=== PATIENT | female | born 1950 | race African-American/Black ===

== ENCOUNTER 2024-04-21 01:34 | Inpatient (IN) | payer MEDICARE ==
[2024-04-21 02:15] VITALS: BMI 31.8
[2024-04-21] MEDS ORDERED: Acetaminophen 650 MG Suppository PR PRN (02:22)
[2024-04-21] MEDS ORDERED: Glucagon 1 MG/ML KIT IM PRN (03:39)
[2024-04-21] MEDS ORDERED: Dextrose 50% Abboject 50 ML SYRINGE SLOW IVP PRN (03:39)
[2024-04-21] MEDS: Ipratropium/Albuterol 3 ML NEB NEB SCH (03:39)
[2024-04-21] MEDS ORDERED: Dextrose 5% in Water 1,000 ML IV PRN (03:39)
[2024-04-21] MEDS: Morphine 2 MG/ML VIAL SLOW IVP SCH (03:42)
[2024-04-21] MEDS: Furosemide 40 MG (4 mL) VIAL SLOW IVP SCH (05:42)
[2024-04-21 07:20] LABS: Anion Gap 14 mmol/L (10-20); BUN (Urea Nitrogen) 16 mg/dL (9.8-20.1); Calc. Creatinine Clearance 63 mL/min (70-130); Calcium 8.3 mg/dL (7.8-10.44); Carbon Dioxide 25 mmol/L (23-31); Chloride 105 mmol/L (98-107); Estimated GFR 62; Glucose 151 mg/dL (83-110); Potassium 3.9 mmol/L (3.5-5.1); Sodium 140 mmol/L (136-145)
[2024-04-21 07:38] LABS: #Basophils 0.03 10x3/uL (0.0-0.2); %Basophils 0.8 % (0.0-1.0); %Eosinophils 3.6 % (0.0-10.0); %Lymphocytes 14.1 % (21.0-51.0); %Monocytes 16.9 % (0.0-10.0); %Neutrophils 64.1 % (42.0-75.0); Hematocrit 33.8 % (36.0-47.0); Hemoglobin 10.6 g/dL (12.0-16.0); Mean Corpuscular HGB CONC 31.4 g/dL (32.0-36.0); Mean Corpuscular Hemoglobin 28.1 pg (27.0-31.0); Mean Corpuscular Volume 89.7 fL (78.0-98.0); Mean Platelet Volume 10.7 fL (7.4-10.4); Platelet Count 244 10x3/uL (130-400); RBC Distribution Width 14.9 % (11.5-14.5); Red Blood Cell (RBC) Count 3.77 mill/uL (4.20-5.40)
[2024-04-21] MEDS: Lisinopril 20 MG TAB PO SCH (08:23)
[2024-04-21] MEDS: Enoxaparin 40 MG (0.4 mL) SYRINGE SC SCH (08:23)
[2024-04-21] MEDS: Atorvastatin Calcium 20 MG TAB PO SCH (08:23)
[2024-04-21] MEDS: Gabapentin 300 MG CAP PO SCH (08:23)
[2024-04-21] MEDS: Carvedilol 25 MG TAB PO SCH (08:23)
[2024-04-21] MEDS: metFORMIN 500 MG TAB PO SCH (08:23)
[2024-04-21 08:37] LABS: ALT (SGPT) 6 U/L (8-55); AST (SGOT) 12 U/L (5-34); Albumin 2.9 g/dL (3.4-4.8); Alkaline Phosphatase 56 U/L (40-110); Bilirubin, Direct 0.2 mg/dL (0.1-0.3); Bilirubin, Total 0.5 mg/dL (0.2-1.2); Protein, Total 6.4 g/dL (5.8-8.1)
[2024-04-21] MEDS: Morphine 2 MG/ML VIAL SLOW IVP PRN (10:11)
[2024-04-21 12:10] LABS: Pleural Fluid, Protein 4.5 g/dL
[2024-04-21] MEDS: traMADol HCl 50 MG TAB PO PRN (12:12)
[2024-04-21 12:25] LABS: Fluid, pH - Pleural Fld Greater than 7.500 (7.60 - 7.66)
[2024-04-21 12:58] LABS: RBC Count-Automated (BF) 7245 /cu.mm; WBC/Nucleated-Auto (BF) 317 /cu.mm
[2024-04-21 13:40] LABS: Body Fluid Source Thoracentesis Fluid; Clarity Hazy (Clear); Tube # EDTA
[2024-04-21 13:41] LABS: BF Color Pink
[2024-04-21 13:46] LABS: BF Segmented Neutrophils 28 %; Cell Count Non Hematic 36 %; Eosinophils 1 %; Lymphocytes 35 %
[2024-04-21 20:34] LABS: Bacteria/HPF 1+ HPF (None Seen); Bilirubin Negative (Negative); Blood, Urine Negative (Negative); Clarity Clear (Clear); Glucose, Urine (Dipstick) >=1000 mg/dL (Negative); Ketone, Urine Negative (Negative); Leukocyte Negative Leu/uL (Negative); Nitrite Negative (Negative); Protein, Urine (Dipstick) Negative (Neg-Trace); RBC/HPF 0-3 HPF (0-3); Specific Gravity, Urine 1.005 (1.002-1.036); Squamous Epithelial 0-3 HPF (0-3); Urobilinogen Normal mg/dL (Less than 2); WBC/HPF 0-3 HPF (0-3)
[2024-04-21] MEDS: Insulin Glargine 30 UNITS/0.3 ML VIAL SC SCH (20:37)
[2024-04-21] MEDS: QUEtiapine 25 MG TAB PO SCH (20:37)
[2024-04-21] MEDS: Ipratropium/Albuterol 3 ML NEB NEB PRN (20:41)
[2024-04-22] MEDS: Morphine 4 MG/ML VIAL SLOW IVP SCH (01:15)
[2024-04-22 05:50] LABS: ALT (SGPT) Less than 5 U/L (8-55); AST (SGOT) 11 U/L (5-34); Albumin 2.7 g/dL (3.4-4.8); Alkaline Phosphatase 54 U/L (40-110); Anion Gap 13 mmol/L (10-20); BUN (Urea Nitrogen) 22 mg/dL (9.8-20.1); Bilirubin, Total 0.4 mg/dL (0.2-1.2); Calc. Creatinine Clearance 53 mL/min (70-130); Calcium 8.1 mg/dL (7.8-10.44); Carbon Dioxide 26 mmol/L (23-31); Chloride 103 mmol/L (98-107); Estimated GFR 50; Globulin 3.5 g/dL (2.4-3.5); Glucose 150 mg/dL (83-110); Magnesium 1.6 mg/dL (1.6-2.6); Potassium 4.1 mmol/L (3.5-5.1); Protein, Total 6.2 g/dL (5.8-8.1); Sodium 138 mmol/L (136-145)
[2024-04-22] MEDS: Insulin Lispro 100 UNIT/ML 10 ML VIAL SC PRN ×2 (06:46→21:34)
[2024-04-22] MEDS ORDERED: Senokot S 8.6-50 MG TAB PO PRN (10:08)
[2024-04-22] MEDS: Bisacodyl 10 MG SUPP PR SCH (11:18)
[2024-04-22] MEDS: methylPREDNISolone Sod Succ/PF 125 MG/2 ML VIAL IVP SCH (12:12)
[2024-04-22] MEDS ORDERED: Ipratropium/Albuterol 3 ML NEB NEB SCH (13:00)
[2024-04-22] MEDS: Ipratropium/Albuterol 3 ML NEB NEB SCH (14:37)
[2024-04-23 05:41] LABS: #Basophils Less than 0.03 10x3/uL (0.0-0.2); #Eosinophils Less than 0.03 10x3/uL (0.0-0.7); %Basophils 0.3 % (0.0-1.0); %Lymphocytes 7.5 % (21.0-51.0); %Neutrophils 84.7 % (42.0-75.0); Hematocrit 34.2 % (36.0-47.0); Hemoglobin 10.7 g/dL (12.0-16.0); Mean Corpuscular HGB CONC 31.3 g/dL (32.0-36.0); Mean Corpuscular Hemoglobin 28.1 pg (27.0-31.0); Mean Corpuscular Volume 89.8 fL (78.0-98.0); Mean Platelet Volume 9.9 fL (7.4-10.4); Platelet Count 287 10x3/uL (130-400); RBC Distribution Width 14.5 % (11.5-14.5); Red Blood Cell (RBC) Count 3.81 mill/uL (4.20-5.40)
[2024-04-23 05:57] LABS: Anion Gap 16 mmol/L (10-20); BUN (Urea Nitrogen) 26 mg/dL (9.8-20.1); Calc. Creatinine Clearance 53 mL/min (70-130); Calcium 8.7 mg/dL (7.8-10.44); Carbon Dioxide 23 mmol/L (23-31); Chloride 104 mmol/L (98-107); Estimated GFR 50; Glucose 164 mg/dL (83-110); Potassium 4.6 mmol/L (3.5-5.1); Sodium 138 mmol/L (136-145)
[2024-04-23] MEDS: Benzocaine/Menthol 1 LOZ LOZ PO PRN (06:01)
[2024-04-23] MEDS: Benzonatate 100 MG CAP PO PRN (06:01)
[2024-04-23] MEDS: Acetaminophen 325 MG TAB PO PRN (06:01)
[2024-04-23] MEDS ORDERED: Iopamidol-370 76% 500 ML MDV (1 ML CHARGE) ONE (12:41)
[2024-04-23] MEDS: methylPREDNISolone Sod Succ 40 MG VIAL IVP SCH (16:36)
[2024-04-23] MEDS: Insulin Lispro 100 UNIT/ML 10 ML VIAL SC PRN (21:41)
[2024-04-24 05:16] LABS: #Basophils Less than 0.03 10x3/uL (0.0-0.2); #Eosinophils Less than 0.03 10x3/uL (0.0-0.7); %Basophils 0.1 % (0.0-1.0); %Lymphocytes 7.3 % (21.0-51.0); %Monocytes 4.2 % (0.0-10.0); %Neutrophils 87.8 % (42.0-75.0); Anion Gap 13 mmol/L (10-20); BUN (Urea Nitrogen) 25 mg/dL (9.8-20.1); Calc. Creatinine Clearance 71 mL/min (70-130); Calcium 8.5 mg/dL (7.8-10.44); Carbon Dioxide 26 mmol/L (23-31); Chloride 104 mmol/L (98-107); Estimated GFR 71; Glucose 213 mg/dL (83-110); Hematocrit 31.5 % (36.0-47.0); Hemoglobin 9.8 g/dL (12.0-16.0); Hemoglobin A1c 7.5 % (4.0-6.0); Mean Corpuscular HGB CONC 31.1 g/dL (32.0-36.0); Mean Corpuscular Hemoglobin 28.2 pg (27.0-31.0); Mean Corpuscular Volume 90.8 fL (78.0-98.0); Mean Platelet Volume 9.7 fL (7.4-10.4); Platelet Count 275 10x3/uL (130-400); Potassium 4.7 mmol/L (3.5-5.1); RBC Distribution Width 14.5 % (11.5-14.5); Red Blood Cell (RBC) Count 3.47 mill/uL (4.20-5.40); Sodium 138 mmol/L (136-145)
[2024-04-24] MEDS: Insulin Lispro 100 UNIT/ML 10 ML VIAL SC PRN (06:33)
[2024-04-24] MEDS: FLU (Fluad Triv) TS24-25 (65UP)/MF59C/PF 45 MCG/0.5 ML Syringe IM ONE (12:19)
[2024-04-24] MEDS: Labetalol HCl 100 MG/20 ML VIAL SLOW IVP SCH (12:56)
[2024-04-24] MEDS ORDERED: Iopamidol-370 76% 500 ML MDV (1 ML CHARGE) ONE (13:14)
[2024-04-24] MEDS: Labetalol HCl 100 MG/20 ML VIAL SLOW IVP PRN (16:54)
[2024-04-24] MEDS: Enalaprilat Dihydrate 1.25 MG/ML VIAL SLOW IVP SCH (18:39)
[2024-04-24] MEDS: hydrOXYzine 25 MG TAB PO SCH (22:30)
[2024-04-24] MEDS: Enoxaparin 80 MG (0.8 mL) SYRINGE SC SCH (22:57)
[2024-04-25] MEDS: Enoxaparin 80 MG (0.8 mL) SYRINGE SC SCH ×2 (02:20→09:27)
[2024-04-25 05:45] LABS: #Basophils Less than 0.03 10x3/uL (0.0-0.2); #Eosinophils Less than 0.03 10x3/uL (0.0-0.7); %Lymphocytes 6.1 % (21.0-51.0); %Monocytes 4.8 % (0.0-10.0); %Neutrophils 88.5 % (42.0-75.0); Hematocrit 32.9 % (36.0-47.0); Hemoglobin 10.2 g/dL (12.0-16.0); Mean Corpuscular Hemoglobin 28.2 pg (27.0-31.0); Mean Corpuscular Volume 90.9 fL (78.0-98.0); Mean Platelet Volume 10.6 fL (7.4-10.4); Platelet Count 315 10x3/uL (130-400); RBC Distribution Width 14.4 % (11.5-14.5); Red Blood Cell (RBC) Count 3.62 mill/uL (4.20-5.40)
[2024-04-25 05:49] LABS: Anion Gap 17 mmol/L (10-20); BUN (Urea Nitrogen) 22 mg/dL (9.8-20.1); Calc. Creatinine Clearance 72 mL/min (70-130); Calcium 8.8 mg/dL (7.8-10.44); Carbon Dioxide 23 mmol/L (23-31); Chloride 103 mmol/L (98-107); Estimated GFR 71; Glucose 182 mg/dL (83-110); Potassium 4.5 mmol/L (3.5-5.1); Sodium 138 mmol/L (136-145)
[2024-04-25] MEDS: hydrALAZINE 20 MG/ML VIAL SLOW IVP SCH ×2 (13:52→17:08)
[2024-04-25] MEDS ORDERED: hydrALAZINE 20 MG/ML VIAL SLOW IVP PRN (17:37)
[2024-04-25] MEDS ORDERED: niCARdipine 25 MG in Sodium Chloride 0.9% 250 ML 250 ML IVPB SCH (17:45)
[2024-04-26 09:46] LABS: #Basophils Less than 0.03 10x3/uL (0.0-0.2); %Basophils 0.3 % (0.0-1.0); %Eosinophils 0.6 % (0.0-10.0); %Lymphocytes 11.9 % (21.0-51.0); %Monocytes 12.6 % (0.0-10.0); Hematocrit 33.6 % (36.0-47.0); Hemoglobin 10.4 g/dL (12.0-16.0); Mean Corpuscular Volume 90.6 fL (78.0-98.0); Mean Platelet Volume 10.7 fL (7.4-10.4); Platelet Count 314 10x3/uL (130-400); RBC Distribution Width 14.5 % (11.5-14.5); Red Blood Cell (RBC) Count 3.71 mill/uL (4.20-5.40)
[2024-04-26 10:07] LABS: Anion Gap 13 mmol/L (10-20); BUN (Urea Nitrogen) 23 mg/dL (9.8-20.1); Calc. Creatinine Clearance 77 mL/min (70-130); Calcium 8.5 mg/dL (7.8-10.44); Carbon Dioxide 25 mmol/L (23-31); Chloride 106 mmol/L (98-107); Estimated GFR 78; Glucose 73 mg/dL (83-110); Potassium 4.2 mmol/L (3.5-5.1); Sodium 140 mmol/L (136-145)
[2024-04-26] MEDS: Apixaban 5 MG TAB PO SCH (20:11)
[2024-04-27] MEDS ORDERED: Loperamide HCl 2 MG CAP ONE (15:04)
[2024-04-27] MEDS ORDERED: traMADol HCl 50 MG TAB ONE (18:46)
[2024-04-27] MEDS ORDERED: Benzocaine/Menthol 1 LOZ LOZ ONE (20:40)
[2024-04-27] MEDS ORDERED: metFORMIN 500 MG TAB ONE (20:40)
[2024-04-27] MEDS ORDERED: Acetaminophen 325 MG TAB ONE (20:40)
[2024-04-27] MEDS ORDERED: Gabapentin 300 MG CAP ONE (20:40)
[2024-04-27] MEDS ORDERED: Carvedilol 25 MG TAB ONE (20:40)
[2024-04-27] MEDS ORDERED: QUEtiapine 25 MG TAB ONE (20:40)
[2024-04-27] MEDS ORDERED: Apixaban 5 MG TAB ONE (20:40)
[2024-04-27] MEDS ORDERED: Lorazepam 0.5 MG TAB ONE (21:43)
[2024-04-28] MEDS ORDERED: Lisinopril 20 MG TAB ONE (09:16)
[2024-04-28] MEDS ORDERED: Apixaban 5 MG TAB ONE ×2 (09:16→21:12)
[2024-04-28] MEDS ORDERED: Atorvastatin Calcium 20 MG TAB ONE (09:16)
[2024-04-28] MEDS ORDERED: Gabapentin 300 MG CAP ONE ×2 (09:16→21:12)
[2024-04-28] MEDS ORDERED: metFORMIN 500 MG TAB ONE ×2 (09:16→21:12)
[2024-04-28] MEDS ORDERED: Carvedilol 25 MG TAB ONE ×2 (09:16→21:12)
[2024-04-28] MEDS ORDERED: traMADol HCl 50 MG TAB ONE (09:26)
[2024-04-28] MEDS ORDERED: Phenol 177 ML BOT PO PRN (18:13)
[2024-04-28] MEDS: Lorazepam 0.5 MG TAB PO SCH (18:18)
[2024-04-28] MEDS: Loperamide HCl 2 MG CAP ONE (18:35)
[2024-04-28] MEDS: Lorazepam 0.5 MG TAB ONE (18:46)
[2024-04-28] MEDS: Phenol 177 ML BOT ONE (18:46)
[2024-04-28] MEDS ORDERED: QUEtiapine 25 MG TAB ONE (21:12)
[2024-04-29] MEDS ORDERED: traMADol HCl 50 MG TAB ONE (05:10)
[2024-04-29 07:53] VITALS: TEMP 98.9
[2024-04-29 08:47] VITALS: BMI 32.5
[2024-04-29] MEDS: Pregabalin 50 MG CAP PO SCH (12:32)
[2024-04-29 17:49] VITALS: BP 141/71
[2024-04-29] MEDS ORDERED: Pregabalin 50 MG CAP PO SCH (21:00)
== END 2024-04-29 18:41 | disposition home or self-care (01) | DRG 186 ==
LOC: ERS 01:34 → T4-B 01:52 → OBSVTOIN 01:52
PROVIDERS: ADMIT Internal Medicine; ATTEND Student in an Organized Health Care Education/Training Program
PROC: 0W9B3ZZ Drainage of Left Pleural Cavity, Percutaneous Approach (ICD-10-PCS; principal; 2024-04-21)
DX: J90 Pleural effusion, not elsewhere classified (principal); J96.01 Acute respiratory failure with hypoxia; I50.32 Chronic diastolic (congestive) heart failure; N17.9 Acute kidney failure, unspecified; I82.C11 Acute embolism and thrombosis of right internal jugular vein; Z90.710 Acquired absence of both cervix and uterus; E11.9 Type 2 diabetes mellitus without complications; Z88.8 Allergy status to other drugs, medicaments and biological substances; G62.82 Radiation-induced polyneuropathy; Z79.84 Long term (current) use of oral hypoglycemic drugs; Z79.899 Other long term (current) drug therapy; I11.0 Hypertensive heart disease with heart failure
CPT/HCPCS: 36415; 36416; 71045; 71046; 71260; 74178; 76705; 78306; 80048; 80053; 80076; 81001; 82150; 82945; 83036; 83615; 83735; 83880; 83986; 84145; 84157; 84478; 84484; 85025; 85060; 85610; 85730; 86304; 87116; 87206; 87428; 87633; 88112; 88305; 88341; 88342; 88360; 88361; 89051; 93005; 93306; 93970; 94640; 96374; A9503; J0360; J1650; J1815; J1940; J2272; J2919; J7620; Q9967

== ENCOUNTER 2024-05-04 05:07 | Inpatient (IN) | payer MEDICARE ==
[2024-05-04 12:22] VITALS: BMI 32.3
[2024-05-04] MEDS ORDERED: Ondansetron ODT 4 MG TAB PO PRN (13:52)
[2024-05-04] MEDS ORDERED: Senokot S 8.6-50 MG TAB PO PRN (13:52)
[2024-05-04] MEDS ORDERED: Acetaminophen 325 MG TAB PO PRN (13:52)
[2024-05-04] MEDS ORDERED: Benzocaine/Menthol 1 LOZ LOZ PO PRN (13:55)
[2024-05-04] MEDS ORDERED: Dextrose 5% in Water 1,000 ML IV PRN (14:40)
[2024-05-04] MEDS ORDERED: Dextrose 50% Abboject 50 ML SYRINGE SLOW IVP PRN (14:40)
[2024-05-04] MEDS ORDERED: Insulin Regular, Human 100 UNIT/ML 10 ML VIAL SC PRN (14:40)
[2024-05-04] MEDS ORDERED: Glucagon 1 MG/ML KIT IM PRN (14:40)
[2024-05-04] MEDS: Acetaminophen/Codeine 30-300mg Tablet PO PRN (16:16)
[2024-05-04] MEDS: metFORMIN 500 MG TAB PO SCH (17:06)
[2024-05-04] MEDS: Carvedilol 25 MG TAB PO SCH (20:04)
[2024-05-04] MEDS: QUEtiapine 25 MG TAB PO SCH (20:04)
[2024-05-04] MEDS: Pregabalin 50 MG CAP PO SCH (20:09)
[2024-05-04] MEDS: Atorvastatin Calcium 20 MG TAB PO SCH (20:10)
[2024-05-04] MEDS: Famotidine 20 MG TAB PO SCH (20:10)
[2024-05-04] MEDS: HYDROcodone/Acetaminophen 5/325 mg Tablet PO PRN (20:10)
[2024-05-05 05:19] LABS: #Basophils Less than 0.03 10x3/uL (0.0-0.2); %Basophils 0.3 % (0.0-1.0); %Eosinophils 0.5 % (0.0-10.0); %Lymphocytes 10.8 % (21.0-51.0); %Neutrophils 77.7 % (42.0-75.0); Hematocrit 32.1 % (36.0-47.0); Mean Corpuscular HGB CONC 31.2 g/dL (32.0-36.0); Mean Corpuscular Hemoglobin 27.9 pg (27.0-31.0); Mean Corpuscular Volume 89.7 fL (78.0-98.0); Mean Platelet Volume 9.8 fL (7.4-10.4); Platelet Count 302 10x3/uL (130-400); RBC Distribution Width 15.2 % (11.5-14.5); Red Blood Cell (RBC) Count 3.58 mill/uL (4.20-5.40)
[2024-05-05 06:29] LABS: Anion Gap 16 mmol/L (10-20); BUN (Urea Nitrogen) 19 mg/dL (9.8-20.1); Calc. Creatinine Clearance 68 mL/min (70-130); Calcium 7.9 mg/dL (7.8-10.44); Carbon Dioxide 24 mmol/L (23-31); Chloride 107 mmol/L (98-107); Estimated GFR 67; Glucose 129 mg/dL (83-110); Potassium 4.3 mmol/L (3.5-5.1); Sodium 143 mmol/L (136-145)
[2024-05-05] MEDS: Lisinopril 20 MG TAB PO SCH (08:19)
[2024-05-05] MEDS: Enoxaparin 40 MG (0.4 mL) SYRINGE SC SCH (08:21)
[2024-05-05] MEDS ORDERED: Bupivacaine PF 0.5% 30 ML VIAL ONE (11:04)
[2024-05-05] MEDS ORDERED: Bupivacaine 0.25% HCL 30 ML VIAL ONE (11:04)
[2024-05-05] MEDS ORDERED: EPINEPHrine 1 MG/ML VIAL ONE (11:04)
[2024-05-05] MEDS ORDERED: CEFAZOLIN 2 GM VIAL ONE (11:10)
[2024-05-05] MEDS ORDERED: fentaNYL 50 mcg/mL 1 mL Vial ONE ×3 (11:32→14:03)
[2024-05-05] MEDS ORDERED: Lidocaine 1% PF 5 ML VIAL ONE (11:34)
[2024-05-05] MEDS ORDERED: Rocuronium Bromide 10 MG/ML (10ML VIAL) ONE (11:34)
[2024-05-05] MEDS ORDERED: Midazolam HCl 2 mg/2 ml Vial ONE (11:34)
[2024-05-05] MEDS ORDERED: PROPOFOL 20 ML ONE (11:34)
[2024-05-05] MEDS ORDERED: PHENYLEPHRINE-NS 100 MCG/ML 10 ML SYRINGE ONE (11:52)
[2024-05-05] MEDS ORDERED: Glycopyrrolate 0.2 MG/ML 5 ML SYRINGE ONE (11:52)
[2024-05-05] MEDS ORDERED: CEFAZOLIN 2 GM in Sodium Chloride 0.9% 100 ML IVPB SCH (12:00)
[2024-05-05] MEDS ORDERED: ePHEDrine Sulfate 50 MG/10 ML VIAL ONE (12:16)
[2024-05-05] MEDS ORDERED: Dexamethasone 4 mg/ml Vial ONE (12:43)
[2024-05-05] MEDS ORDERED: SUGAMMADEX SODIUM 200 MG/2 ML VIAL ONE (12:44)
[2024-05-05] MEDS ORDERED: Ondansetron PF 4 MG/2 ML Vial ONE (12:44)
[2024-05-05] MEDS ORDERED: Morphine 4 MG/ML VIAL ONE (13:38)
[2024-05-05] MEDS ORDERED: Morphine 2 MG/ML VIAL ONE (13:50)
[2024-05-05] MEDS: Morphine 2 MG/ML VIAL SLOW IVP PRN (17:33)
[2024-05-06] MEDS: Ipratropium/Albuterol 3 ML NEB NEB PRN (02:08)
[2024-05-06] MEDS: Acetaminophen 325 MG TAB PO SCH (15:00)
[2024-05-06] MEDS: Methylcellulose 500 MG TAB PO SCH (21:14)
[2024-05-06] MEDS: Senokot S 8.6-50 MG TAB PO SCH (21:14)
[2024-05-06] MEDS: Polyethylene Glycol 3350 17 GM Packet PO SCH (21:16)
[2024-05-07 04:53] LABS: #Basophils Less than 0.03 10x3/uL (0.0-0.2); %Basophils 0.3 % (0.0-1.0); %Eosinophils 2.3 % (0.0-10.0); %Lymphocytes 10.1 % (21.0-51.0); %Monocytes 10.7 % (0.0-10.0); Hematocrit 31.3 % (36.0-47.0); Hemoglobin 9.5 g/dL (12.0-16.0); Mean Corpuscular HGB CONC 30.4 g/dL (32.0-36.0); Mean Corpuscular Hemoglobin 27.6 pg (27.0-31.0); Mean Platelet Volume 10.2 fL (7.4-10.4); Platelet Count 239 10x3/uL (130-400); RBC Distribution Width 15.4 % (11.5-14.5); Red Blood Cell (RBC) Count 3.44 mill/uL (4.20-5.40)
[2024-05-07 05:11] LABS: Anion Gap 12 mmol/L (10-20); BUN (Urea Nitrogen) 26 mg/dL (9.8-20.1); Calc. Creatinine Clearance 74 mL/min (70-130); Calcium 7.9 mg/dL (7.8-10.44); Carbon Dioxide 24 mmol/L (23-31); Chloride 109 mmol/L (98-107); Estimated GFR 74; Glucose 151 mg/dL (83-110); Magnesium 1.7 mg/dL (1.6-2.6); Potassium 4.5 mmol/L (3.5-5.1); Sodium 140 mmol/L (136-145)
[2024-05-07] MEDS: Magnesium 2 GM/50 ML(in water) 2 GM in Premix 1 BAG IVPB SCH (11:32)
[2024-05-07] MEDS ORDERED: Milk Of Magnesia 30 ML UDCUP PO PRN (14:33)
[2024-05-07] MEDS: GUAIFENESIN SF SOLN 200 MG/10 ML UDCUP PO PRN (17:23)
[2024-05-07] MEDS: guaiFENesin ER 600 MG TAB PO SCH (21:02)
[2024-05-07] MEDS: Polyethylene Glycol 3350 17 GM Packet PO SCH (21:02)
[2024-05-08 05:40] LABS: #Basophils Less than 0.03 10x3/uL (0.0-0.2); %Basophils 0.1 % (0.0-1.0); %Eosinophils 2.4 % (0.0-10.0); %Lymphocytes 8.4 % (21.0-51.0); %Monocytes 8.9 % (0.0-10.0); %Neutrophils 79.5 % (42.0-75.0); Hematocrit 31.9 % (36.0-47.0); Hemoglobin 9.8 g/dL (12.0-16.0); Mean Corpuscular HGB CONC 30.7 g/dL (32.0-36.0); Mean Corpuscular Hemoglobin 27.9 pg (27.0-31.0); Mean Corpuscular Volume 90.9 fL (78.0-98.0); Mean Platelet Volume 10.4 fL (7.4-10.4); Platelet Count 232 10x3/uL (130-400); RBC Distribution Width 15.2 % (11.5-14.5); Red Blood Cell (RBC) Count 3.51 mill/uL (4.20-5.40)
[2024-05-08 06:01] LABS: Anion Gap 15 mmol/L (10-20); BUN (Urea Nitrogen) 24 mg/dL (9.8-20.1); Calc. Creatinine Clearance 84 mL/min (70-130); Calcium 8.2 mg/dL (7.8-10.44); Carbon Dioxide 22 mmol/L (23-31); Chloride 107 mmol/L (98-107); Estimated GFR 87; Glucose 191 mg/dL (83-110); Potassium 4.6 mmol/L (3.5-5.1); Sodium 139 mmol/L (136-145)
[2024-05-08] MEDS: Loperamide HCl 2 MG CAP PO SCH (20:57)
[2024-05-09] MEDS ORDERED: Sodium Chloride 0.65% Nasal 44 ML BOT EA NARE PRN (11:12)
[2024-05-09] MEDS ORDERED: Artificial Tear Ophth Sol 15 ML BOT EA EYE PRN (11:12)
[2024-05-09] MEDS ORDERED: Moisturizing Cream (Eucerin) 113 GM JAR TOP PRN (11:12)
[2024-05-09] MEDS: Loperamide HCl 2 MG CAP PO PRN (13:01)
[2024-05-10] MEDS ORDERED: Iopamidol-370 76% 500 ML MDV (1 ML CHARGE) ONE (11:43)
[2024-05-11 13:33] VITALS: BMI 32.3
[2024-05-11] MEDS: Methocarbamol 500 MG TAB PO PRN (22:47)
[2024-05-13 08:13] LABS: #Basophils Less than 0.03 10x3/uL (0.0-0.2); %Basophils 0.4 % (0.0-1.0); %Eosinophils 3.4 % (0.0-10.0); %Lymphocytes 10.1 % (21.0-51.0); %Monocytes 11.8 % (0.0-10.0); %Neutrophils 72.8 % (42.0-75.0); Hematocrit 31.9 % (36.0-47.0); Hemoglobin 9.8 g/dL (12.0-16.0); Mean Corpuscular HGB CONC 30.7 g/dL (32.0-36.0); Mean Corpuscular Hemoglobin 27.5 pg (27.0-31.0); Mean Corpuscular Volume 89.6 fL (78.0-98.0); Mean Platelet Volume 10.5 fL (7.4-10.4); Platelet Count 245 10x3/uL (130-400); RBC Distribution Width 15.3 % (11.5-14.5); Red Blood Cell (RBC) Count 3.56 mill/uL (4.20-5.40)
[2024-05-13 08:56] LABS: Anion Gap 14 mmol/L (10-20); BUN (Urea Nitrogen) 37 mg/dL (9.8-20.1); Calc. Creatinine Clearance 80 mL/min (70-130); Calcium 8.8 mg/dL (7.8-10.44); Carbon Dioxide 24 mmol/L (23-31); Chloride 104 mmol/L (98-107); Estimated GFR 81; Glucose 201 mg/dL (83-110); Potassium 5.6 mmol/L (3.5-5.1); Sodium 136 mmol/L (136-145)
[2024-05-13] MEDS: ALPRAZolam 0.25 MG TAB PO PRN (20:57)
[2024-05-16 05:20] LABS: #Basophils Less than 0.03 10x3/uL (0.0-0.2); %Basophils 0.5 % (0.0-1.0); %Eosinophils 3.9 % (0.0-10.0); %Lymphocytes 13.4 % (21.0-51.0); %Monocytes 14.9 % (0.0-10.0); %Neutrophils 66.1 % (42.0-75.0); Hematocrit 30.3 % (36.0-47.0); Hemoglobin 9.3 g/dL (12.0-16.0); Mean Corpuscular HGB CONC 30.7 g/dL (32.0-36.0); Mean Corpuscular Hemoglobin 27.1 pg (27.0-31.0); Mean Corpuscular Volume 88.3 fL (78.0-98.0); Mean Platelet Volume 11.5 fL (7.4-10.4); Platelet Count 246 10x3/uL (130-400); RBC Distribution Width 15.5 % (11.5-14.5); Red Blood Cell (RBC) Count 3.43 mill/uL (4.20-5.40)
[2024-05-16 05:48] LABS: Anion Gap 14 mmol/L (10-20); BUN (Urea Nitrogen) 32 mg/dL (9.8-20.1); Calc. Creatinine Clearance 74 mL/min (70-130); Calcium 8.7 mg/dL (7.8-10.44); Carbon Dioxide 26 mmol/L (23-31); Chloride 106 mmol/L (98-107); Estimated GFR 74; Glucose 119 mg/dL (83-110); Potassium 5.1 mmol/L (3.5-5.1); Sodium 141 mmol/L (136-145)
[2024-05-17 09:05] VITALS: BP 133/92; TEMP 98
== END 2024-05-17 17:20 | disposition home or self-care (01) | DRG 166 ==
LOC: T4-A 05:07
PROVIDERS: ADMIT Internal Medicine; ATTEND Internal Medicine
PROC: 0W9B40Z Drainage of Left Pleural Cavity with Drainage Device, Percutaneous Endoscopic Approach (ICD-10-PCS; principal; 2024-05-05)
PROC: 0W9940Z Drainage of Right Pleural Cavity with Drainage Device, Percutaneous Endoscopic Approach (ICD-10-PCS; 2024-05-05)
DX: C78.01 Secondary malignant neoplasm of right lung (principal); J96.01 Acute respiratory failure with hypoxia; J91.0 Malignant pleural effusion; C78.02 Secondary malignant neoplasm of left lung; C54.1 Malignant neoplasm of endometrium; E11.22 Type 2 diabetes mellitus with diabetic chronic kidney disease; N18.2 Chronic kidney disease, stage 2 (mild); Z66 Do not resuscitate; D63.1 Anemia in chronic kidney disease; I12.9 Hypertensive chronic kidney disease with stage 1 through stage 4 chronic kidney disease, or unspecified chronic kidney disease; R53.81 Other malaise; E11.42 Type 2 diabetes mellitus with diabetic polyneuropathy; E87.5 Hyperkalemia; Z86.718 Personal history of other venous thrombosis and embolism; Z90.710 Acquired absence of both cervix and uterus; Z51.5 Encounter for palliative care
CPT/HCPCS: 36415; 36416; 71045; 71260; 72157; 72158; 74177; 80048; 80053; 83605; 83735; 83880; 84484; 85025; 85610; 85730; 86304; 88112; 88305; 93005; 94640; 94760; 96374; 96375; A7048; J0171; J0456; J0665; J0696; J1100; J1650; J1940; J2250; J2272; J2405; J2704; J2919; J3010; J3475; J7620; Q9967

== ENCOUNTER 2024-06-06 13:30 | Outpatient (CLI) | payer MEDICARE | END 2024-06-06 13:31 | disposition home or self-care (01) | LOC: RAD 13:30 | PROVIDERS: ATTEND Student in an Organized Health Care Education/Training Program | DX: C78.00 Secondary malignant neoplasm of unspecified lung (principal); J91.0 Malignant pleural effusion; R91.8 Other nonspecific abnormal finding of lung field | CPT/HCPCS: 71046 ==

== ENCOUNTER 2024-06-13 00:07 | Emergency (ER) | payer MEDICARE ==
[2024-06-13 03:57] LABS: #Basophils Less than 0.03 10x3/uL (0.0-0.2); #Eosinophils Less than 0.03 10x3/uL (0.0-0.7); %Basophils 0.2 % (0.0-1.0); %Eosinophils 0.2 % (0.0-10.0); %Lymphocytes 7.3 % (21.0-51.0); %Monocytes 12.5 % (0.0-10.0); %Neutrophils 79.6 % (42.0-75.0); Hematocrit 34.5 % (36.0-47.0); Hemoglobin 10.7 g/dL (12.0-16.0); Mean Corpuscular Hemoglobin 26.4 pg (27.0-31.0); Mean Corpuscular Volume 85.2 fL (78.0-98.0); Mean Platelet Volume 9.6 fL (7.4-10.4); Platelet Count 317 10x3/uL (130-400); RBC Distribution Width 15.2 % (11.5-14.5); Red Blood Cell (RBC) Count 4.05 mill/uL (4.20-5.40)
[2024-06-13 04:13] LABS: ALT (SGPT) 9 U/L (8-55); AST (SGOT) 29 U/L (5-34); Albumin 2.1 g/dL (3.4-4.8); Alkaline Phosphatase 68 U/L (40-110); Anion Gap 16 mmol/L (10-20); BUN (Urea Nitrogen) 29 mg/dL (9.8-20.1); Bilirubin, Total 0.4 mg/dL (0.2-1.2); Calc. Creatinine Clearance 0 mL/min (70-130); Calcium 8.7 mg/dL (7.8-10.44); Carbon Dioxide 26 mmol/L (23-31); Chloride 98 mmol/L (98-107); Estimated GFR 52; Globulin 4.6 g/dL (2.4-3.5); Glucose 170 mg/dL (83-110); Potassium 5.1 mmol/L (3.5-5.1); Protein, Total 6.7 g/dL (5.8-8.1); Sodium 135 mmol/L (136-145)
[2024-06-13 06:07] LABS: Bacteria/HPF None Seen HPF (None Seen); Bilirubin Negative (Negative); Blood, Urine Negative (Negative); CAUTI Indications for Culture Pelvic or flank pain; Clarity Clear (Clear); Glucose, Urine (Dipstick) Greater than 1000 mg/dL (Negative); Ketone, Urine Negative (Negative); Leukocyte 25 Leu/uL (Negative); Nitrite Negative (Negative); Protein, Urine (Dipstick) 20 mg/dL (Neg-Trace); RBC/HPF 0-3 HPF (0-3); Squamous Epithelial 0-3 HPF (0-3); Urobilinogen Normal mg/dL (Less than 2); pH, Urine 5.5 (5.0-9.0)
[2024-06-13 06:08] LABS: Urine Culture Reflex No No
== END 2024-06-13 06:46 | disposition home or self-care (01) ==
LOC: ERS 00:07
DX: S09.90XA Unspecified injury of head, initial encounter (principal); E11.9 Type 2 diabetes mellitus without complications; I10 Essential (primary) hypertension; Z87.891 Personal history of nicotine dependence; Z79.01 Long term (current) use of anticoagulants; W19.XXXA Unspecified fall, initial encounter; W22.8XXA Striking against or struck by other objects, initial encounter; Y93.89 Activity, other specified
CPT/HCPCS: 70450; 71045; 72125; 80053; 81001; 85025